=== PATIENT | male | born 1955 | race Caucasian/White ===

== ENCOUNTER 2018-12-28 14:54 | Inpatient (IN) | payer OTHER ==
[2018-12-28] MEDS ORDERED: IPRATROPIUM/ALBUTEROL 3 ML DEYVIAL IH ONE (14:57)
[2018-12-28] MEDS ORDERED: methylPREDNISolone SOD SUCC 125 MG/2 ML VIAL IVP ONE (15:06)
[2018-12-28] MEDS ORDERED: ALBUTEROL 3 ML DEYVIAL IH ONE ×4 (15:06→17:25)
[2018-12-28] MEDS ORDERED: IPRATROPIUM/ALBUTEROL 3 ML DEYVIAL ONE (15:56)
[2018-12-28] MEDS ORDERED: IOPAMIDOL (ISOVUE-300) 100 ML BTL ONE (16:32)
[2018-12-28] MEDS ORDERED: MAGNESIUM SULF 2 GM/WATER 50 ML IV ONE (17:23)
[2018-12-28] MEDS ORDERED: ALBUTEROL 3 ML DEYVIAL ONE (17:23)
[2018-12-28] MEDS ORDERED: NS 1,000 ML IV ONE (17:25)
[2018-12-28] MEDS ORDERED: NICOTINE POLACRILEX 2 MG GUM B PRN (18:09)
[2018-12-28] MEDS ORDERED: PROMETHAZINE HCL 25 MG/ML INJ IVP PRN (18:09)
[2018-12-28] MEDS ORDERED: ALBUTEROL 3 ML DEYVIAL IH PRN (18:09)
[2018-12-28] MEDS ORDERED: HYDROCODONE/APAP 5/325 TAB PO PRN (18:09)
[2018-12-28] MEDS ORDERED: ACETAMINOPHEN 325 MG TAB PO PRN (18:09)
[2018-12-28] MEDS ORDERED: oxyCODONE IR 5 MG TAB PO PRN (18:09)
[2018-12-28] MEDS ORDERED: ONDANSETRON 4 MG/2 ML VIAL IVP PRN (18:09)
[2018-12-28] MEDS ORDERED: ONDANSETRON DISINTEGRATING 4 MG TAB PO PRN (18:09)
[2018-12-28] MEDS: AZITHROMYCIN IV 500 MG in NS 250 ML IV SCH (19:26)
[2018-12-28] MEDS: FLUTICASONE/SALMETER 250/50MCG DISKUS IH SCH (20:50)
[2018-12-28] MEDS: IPRATROPIUM/ALBUTEROL 3 ML DEYVIAL IH SCH (20:50)
[2018-12-28] MEDS: NICOTINE 7 MG/24 HR PATCH TD SCH (21:10)
[2018-12-28] MEDS: methylPREDNISolone SOD SUCC 125 MG/2 ML VIAL IVP SCH (21:10)
[2018-12-29] MEDS: methylPREDNISolone SOD SUCC 125 MG/2 ML VIAL IVP SCH ×4 (03:54→20:38)
[2018-12-29] MEDS: IPRATROPIUM/ALBUTEROL 3 ML DEYVIAL IH SCH ×4 (06:17→20:50)
[2018-12-29] MEDS: AZITHROMYCIN IV 500 MG in NS 250 ML IV SCH (09:20)
[2018-12-29] MEDS: NICOTINE 7 MG/24 HR PATCH TD SCH (09:20)
[2018-12-29] MEDS: LOSARTAN POTASSIUM 50 MG TAB PO SCH (09:24)
[2018-12-29] MEDS: FLUTICASONE/SALMETER 250/50MCG DISKUS IH SCH ×2 (09:24→20:50)
[2018-12-29] MEDS: TAMSULOSIN HCL 0.4 MG CAP PO SCH (09:25)
[2018-12-30] MEDS: IPRATROPIUM/ALBUTEROL 3 ML DEYVIAL IH SCH ×2 (05:30→09:35)
[2018-12-30] MEDS: NICOTINE 7 MG/24 HR PATCH TD SCH (08:15)
[2018-12-30] MEDS: LOSARTAN POTASSIUM 50 MG TAB PO SCH (08:15)
[2018-12-30] MEDS: TAMSULOSIN HCL 0.4 MG CAP PO SCH (08:15)
[2018-12-30] MEDS ORDERED: predniSONE 20 MG TAB PO SCH (09:00)
[2018-12-30] MEDS ORDERED: AZITHROMYCIN 250 MG TAB PO SCH (09:00)
[2018-12-30] MEDS: FLUTICASONE/SALMETER 250/50MCG DISKUS IH SCH (09:35)
== END 2018-12-30 14:29 | disposition home or self-care (01) | DRG 190 ==
DX: J44.1 Chronic obstructive pulmonary disease with (acute) exacerbation (principal); J96.01 Acute respiratory failure with hypoxia; D72.829 Elevated white blood cell count, unspecified; I10 Essential (primary) hypertension; N40.0 Benign prostatic hyperplasia without lower urinary tract symptoms; R91.1 Solitary pulmonary nodule; Z96.641 Presence of right artificial hip joint; Z87.891 Personal history of nicotine dependence